=== PATIENT | female | born 1960 | race Caucasian/White ===

== ENCOUNTER 2020-10-14 08:54 | Day surgery (SDC) | payer MEDICARE, BC ==
[~2020-10-14] VITALS: Ht 162.6 cm; Wt 53.0 kg
[2020-10-14] VITALS (7 sets, daily range): BP systolic 94–108; BP diastolic 54–66
[~2020-10-14 08:54] MED LIST: ATOR10TA10 PO; CHOL400T57 PO; CYAN-51 PO; FILG480D2 SQ; FOLI0.4T14 PO; MULT-227 PO; OMEG1CAP46 PO; SYN0.112T PO; URSO250T12 PO; VITA400C67 PO
[2020-10-14] MEDS ORDERED: FURO20TA4 PO (09:25)
[2020-10-14] MEDS ORDERED: VANC250C5 PO (09:25)
[2020-10-14] MEDS ORDERED: SPIR25TA5 PO (09:25)
[2020-10-14] MEDS ORDERED: CIPR-429 PO (09:25)
[2020-10-14 10:07] LABS: PLATELET COUNT 112 X10'3 (140-440)
[2020-10-14 10:09] LABS: HEMATOCRIT 32.2 % (35.0-45.0); HEMOGLOBIN 10.9 g/dl (12.0-16.0); MEAN CORPUSCULAR HEMOGLOBIN 31.6 PG (27.0-31.0); MEAN CORPUSCULAR HGB CONC 33.8 g/dL (33.0-36.5); MEAN CORPUSCULAR VOLUME 93.5 FL (78-98); MEAN PLATELET VOLUME 8.9 FL (7.4-10.4); RED BLOOD COUNT 3.44 X10'6 (4.20-5.60); RED CELL DISTRIBUTION WIDTH 17.4 % (11.5-14.5)
[2020-10-14 10:15] LABS: ALBUMIN 1.8 G/DL (3.4-5.0); ANION GAP 10 (8-16); BLOOD UREA NITROGEN 13 MG/DL (7-18); CALCIUM 8.9 MG/DL (8.5-10.1); CHLORIDE 104 MMOL/L (99-107); CREATININE 0.52 MG/DL (0.40-0.90); GLUCOSE 86 MG/DL (70-104); POTASSIUM 4.1 MMOL/L (3.5-5.1); SODIUM 138 MMOL/L (135-145); TOTAL CARBON DIOXIDE 24.3 MMOL/L (24-32); eGFR > 90 ML/MIN
[2020-10-14] MEDS ORDERED: ceFAZolin/D5W- 1GM premix 50 ML IV ONE (10:30)
[2020-10-14 10:38] LABS: ANISOCYTOSIS 1+; PLATELET ESTIMATE DECREASED; ROULEAUX 1+; TOTAL CELLS COUNTED 100
[2020-10-14] MEDS ORDERED: LIDOcaine 1%/PF 5ML 10 MG/ML VIAL ONE (10:38)
[2020-10-14] MEDS ORDERED: fentaNYL/PF 50MCG/1 ML 2ML syringe ONE (10:38)
[2020-10-14] MEDS ORDERED: heparin 1,000 UNITS/NS 500ml 500 ML ONE (10:38)
[2020-10-14] MEDS ORDERED: midazolam 1 mg/ML 2ml injection ONE (10:38)
[2020-10-14] MEDS ORDERED: iohexol 300 MG/1 ML 50ml polymer ONE (10:38)
[2020-10-14 10:39] LABS: TARGET CELLS 1+
[2020-10-14] MEDS ORDERED: normal saline 1000ml 1,000 ML IV SCH (12:20)
== END 2020-10-14 13:45 | disposition home or self-care (01) ==
LOC: SSTAY O 08:54
PROVIDERS: ATTEND Radiology Vascular & Interventional Radiology
DX: K73.8 Other chronic hepatitis, not elsewhere classified (principal); K74.00 Hepatic fibrosis, unspecified; R18.8 Other ascites; D70.8 Other neutropenia; K74.60 Unspecified cirrhosis of liver; E03.9 Hypothyroidism, unspecified; Z85.79 Personal history of other malignant neoplasms of lymphoid, hematopoietic and related tissues; Z98.890 Other specified postprocedural states; Z79.899 Other long term (current) drug therapy
CPT/HCPCS: 36011; 36415; 37200; 75970; 76937; 80048; 85025; 85610; 99152; 99153; C1769; C1894; C2625; J1644; J2250; J3010; Q9967; 85007; 88307; 88313; A6213